=== PATIENT | male | born 1965 | race Caucasian/White ===

== ENCOUNTER 2021-03-01 15:17 | Emergency (ER) | payer OTHER ==
[2021-03-01 16:10] LABS: BASOPHIL 0.3 % (0-2); EOSINOPHIL 0.4 % (0-5); HGB 16.8 g/dl (13.2-18.0); LYMPHOCYTE 9.7 % (15-48); MCHC 34.3 g/dL (32.0-36.0); MCV 84.5 fL (78.0-100.0); MONOCYTE 3.5 % (0-12); NEUTROPHIL 85.7 % (41-80); NRBC 0; PLT 326 K/uL (150-400); RDW 12.7 % (11.5-14.0); WBC 12.4 K/uL (4.0-10.5)
[2021-03-01 16:17] LABS: INR 1.06 (0.9-1.2); PROTHROMBIN TIME 13.1 SECONDS (11.4-13.6); PTT 26.9 SECONDS (22.2-34.7)
[2021-03-01 16:19] LABS: D-DIMER 0.58 ug/mLFEU (0.00-0.41)
[2021-03-01 16:30] LABS: BILIRUBIN - TOTAL 0.9 mg/dL (0.2-1.0); BUN/CREAT RATIO (CALC) 14.7 RATIO; CREATININE 1.02 mg/dL (0.67-1.17); GLOBULIN (CALCULATION) 3.4 g/dL; POTASSIUM 4.5 mmol/L (3.5-5.1); TOTAL PROTEIN 7.4 g/dL (6.4-8.2)
== END 2021-03-01 20:38 | disposition home or self-care (01) ==
LOC: FER 15:17
PROVIDERS: Emergency Medicine
DX: G43.909 Migraine, unspecified, not intractable, without status migrainosus (principal)
CPT/HCPCS: 36415; 70450; 80053; 83735; 84145; 85025; 85379; 85610; 85730; J0780; J1100; J1170; J1200; J3475; J7030

== ENCOUNTER → 2021-08-02 | Day surgery (SDC) | payer OTHER ==
[~2021-08-02] VITALS: Ht 182.9 cm; Wt 104.3 kg
== END | disposition home or self-care (01) ==
LOC: FAS 05:58
DX: S73.101A Unspecified sprain of right hip, initial encounter (principal); M16.11 Unilateral primary osteoarthritis, right hip; M25.851 Other specified joint disorders, right hip; Z86.14 Personal history of Methicillin resistant Staphylococcus aureus infection
CPT/HCPCS: J1040; J2250; J2704; J7120; Q9967

== ENCOUNTER 2021-12-13 06:30 | Day surgery (SDC) | payer OTHER ==
[~2021-12-13] VITALS: Ht 183 cm; Wt 102.0 kg
[2021-12-13 08:22] LABS: BUN/CREAT RATIO (CALC) 9.7 RATIO; CREATININE 1.03 mg/dL (0.67-1.17); POTASSIUM 3.2 mmol/L (3.5-5.1)
--- NOTE | 2021-12-13 14:34 | NUR ---
PT HAD A RDATHR THIS DATE. [facility] TO DELIVER A RW. PT. REQUESTED [facility] OUTPT. FIRST APPT IS 12/15/21 @ 8:00 A.M. PT. WILL D/C HOME WITH SPOUSE.
[2021-12-13] MEDS ORDERED: FEOSOL325 MG PO (15:17)
[2021-12-13] MEDS ORDERED: CHILDREN'S ASPI81 MG PO (15:17)
[2021-12-14 05:40] LABS: BASOPHIL 0.1 % (0-2); EOSINOPHIL 0.1 % (0-5); HCT 36.6 % (42.0-52.0); HGB 12.5 g/dl (13.2-18.0); LYMPHOCYTE 10.5 % (15-48); MCH 29.1 pg (25.0-31.0); MCHC 34.2 g/dL (32.0-36.0); MCV 85.1 fL (78.0-100.0); MONOCYTE 8.1 % (0-12); NEUTROPHIL 80.7 % (41-80); NRBC 0; PLT 275 K/uL (150-400); RDW 12.5 % (11.5-14.0); WBC 15.7 K/uL (4.0-10.5)
[2021-12-14 06:16] LABS: BUN/CREAT RATIO (CALC) 14.8 RATIO; CREATININE 1.08 mg/dL (0.67-1.17); POTASSIUM 3.7 mmol/L (3.5-5.1)
[2021-12-14] MEDS ORDERED: ONDANSETRON HCL4 MG PO (08:19)
== END 2021-12-14 16:00 | disposition home or self-care (01) ==
LOC: FAS 06:30 → FOR 08:30 → FOFB 09:04 → FOR 11:30 → FAS 12-14 16:00
PROVIDERS: Nurse Anesthetist, Certified Registered; Orthopaedic Surgery
DX: M16.11 Unilateral primary osteoarthritis, right hip (principal); R11.2 Nausea with vomiting, unspecified; G47.33 Obstructive sleep apnea (adult) (pediatric)
CPT/HCPCS: 0054T; 27130; 36415; 73501; 76000; 80048; 85025; 86850; 86900; 86901; 94010; 97162; 97166; 97530-GP; 97535; C1776; J0171; J0697; J1100; J1170; J1885; J2250; J2270; J2405; J2704; J2795; J3010; J7120